=== PATIENT | female | born 1965 | race Two or more races ===

== ENCOUNTER 2021-06-20 10:40 | Day surgery (SDC) | payer OTHER | END 2021-06-20 16:10 | disposition home or self-care (01) | LOC: AMB-ENDOS 10:40 | PROVIDERS: ATTEND Colon & Rectal Surgery | DX: D12.2 Benign neoplasm of ascending colon (principal); K64.8 Other hemorrhoids; Z20.822 Contact with and (suspected) exposure to COVID-19; Z12.11 Encounter for screening for malignant neoplasm of colon ==

== ENCOUNTER 2024-09-29 08:21 | Day surgery (SDC) | payer OTHER ==
[2024-09-29] MEDS ORDERED: MIDAZOLAM HCL 2 MG/2 ML VIAL IV ONE (14:15)
[2024-09-29] MEDS ORDERED: ONDANSETRON HCL 2 MG/ML VIAL IV ONE (14:15)
[2024-09-29] MEDS ORDERED: fentaNYL CITRATE 50 MCG/ML AMPUL IV PUSH ONE (14:15)
[2024-09-29] MEDS ORDERED: DIPHENHYDRAMINE HCL 50 MG/ML VIAL 1ML IV ONE (14:15)
== END 2024-09-29 15:40 | disposition home or self-care (01) ==
LOC: AMB-ENDOS 08:21
PROVIDERS: ATTEND Colon & Rectal Surgery
DX: D12.3 Benign neoplasm of transverse colon (principal); D12.5 Benign neoplasm of sigmoid colon; D12.8 Benign neoplasm of rectum; Z91.013 Allergy to seafood; K52.89 Other specified noninfective gastroenteritis and colitis